=== PATIENT | male | born 1950 | race Caucasian/White ===

== ENCOUNTER → 2018-08-26 | Outpatient (CLI) | payer MEDICARE, OTHER ==
[~2018-08-26] MED LIST: LISINOPRIL5 MG PO; ZOFRAN ODT4 MG PO
== END ==
LOC: M.RAD 15:48
DX: R05 Cough (principal); Z88.0 Allergy status to penicillin; Z88.1 Allergy status to other antibiotic agents; Z88.8 Allergy status to other drugs, medicaments and biological substances

== ENCOUNTER 2020-10-02 09:56 | Emergency (ER) | payer MEDICARE, OTHER ==
[~2020-10-02] VITALS: Ht 172.7 cm; Wt 81.7 kg
[2020-10-02] MEDS ORDERED: NORCO5 PO (10:44)
[2020-10-02] MEDS ORDERED: CIPRO500 M1 PO (10:44)
[2020-10-02 10:48] VITALS: BP 174/76
== END 2020-10-02 10:49 | disposition home or self-care (01) ==
LOC: M.ERS 09:56
DX: S91.332A Puncture wound without foreign body, left foot, initial encounter (principal); I10 Essential (primary) hypertension; Z90.49 Acquired absence of other specified parts of digestive tract; Z79.899 Other long term (current) drug therapy; Z88.0 Allergy status to penicillin; W22.8XXA Striking against or struck by other objects, initial encounter; Y93.89 Activity, other specified; Y92.89 Other specified places as the place of occurrence of the external cause; Y99.8 Other external cause status

== ENCOUNTER 2020-11-01 19:58 | Emergency (ER) | payer MEDICARE, OTHER ==
[~2020-11-01] VITALS: Ht 172.7 cm; Wt 83.9 kg
[~2020-11-01 19:58] MED LIST changes: +CIPRO500 M1 PO; +NORCO5 PO
[2020-11-01] MEDS ORDERED: CEPHALEXIN500 MG PO (20:31)
[2020-11-01 20:43] VITALS: BP 178/67
== END 2020-11-01 20:43 | disposition home or self-care (01) ==
LOC: M.ERS 19:58
DX: L03.114 Cellulitis of left upper limb (principal); I10 Essential (primary) hypertension; Z79.899 Other long term (current) drug therapy; Z90.49 Acquired absence of other specified parts of digestive tract; Z98.890 Other specified postprocedural states